=== PATIENT | female | born 1965 | race Caucasian/White ===

== ENCOUNTER 2024-05-04 08:29 | Outpatient (OUT) | payer MEDICAID, SELFPAY ==
[2024-05-04 08:48] LABS: Hemoglobin 13.9 g/dL (12.0-16.0)
--- NOTE | 2024-05-04 09:26 | RT_ITS ---
[facility] Test Date: 2024-05-04 Pat Name: LESLY HESS Department: Room: - Gender: Female Language Tutor: Aston Rodriguez RRT : 1965 Requested By: JAMAR PADRON M.D. Order Number: [id number] Reading MD: Jose De Jesus Lincoln Interpretive Statements Pulmonary function testing was completed according to ATS criteria. Findings were considered accurate and reproducible. Both pre- and post-bronchodilator values utilized for spirometry. No plethysmography was ordered. Spirometry (based on pre-bronchodilator values): -FEV1/FVC: Normal @ 74% -FEV1: Severely reduced @ 70% -FVC: Moderately reduced @ 73% -[id number]%: Reduced @ 53% -There is a partial bronchodilator response in FVC which meets >200mL increase but <12% change. Diffusion capacity: -DLCO: Moderately-severe reduction @ 55% when corrected for Hb 13.9g/dL Flow-volume loop: -'Scooping/coving' of the expiratory limb Impressions: -Non-diagnostic spirometry but appears to trend towards moderate obstruction. Partial bronchodilator response. Moderately-severe diffusion impairment. Overall study may suggest underlying COPD, but there may be an additional restrictive component affecting spirometry - if clinically correlated, plethysmography would be helpful. Electronically Signed On 05-04-2024 16:01:22 EDT by Jose De Jesus Lincoln
[2024-05-04] MEDS: ALBUTEROL SULFATE 2.5 MG/3 ML VIAL NEB IH (09:28)
== END 2024-05-04 08:30 | disposition home or self-care (01) ==
LOC: CARD 08:32
PROVIDERS: PCP Family Medicine; Visit Provider Internal Medicine Interventional Cardiology
DX: R06.02 Shortness of breath (principal); I34.0 Nonrheumatic mitral (valve) insufficiency
CPT/HCPCS: 36415; 85018; 94060; 94729

== ENCOUNTER 2024-11-15 15:03 | Outpatient (OUT) | payer MEDICAID, SELFPAY ==
[2024-11-15 15:58] LABS: Anion Gap 12.1; BUN Creatinine Ratio 20.6; Calcium 9.1 mg/dL (8.5-10.1); Carbon Dioxide 30.8 mmol/L (21.0-32.0); Chloride 103 mmol/L (98-107); Estimated GFR (African America >60 (>=60 mL/min/1.73m^2); Estimated GFR (Non-African Ame 55 (>=60 mL/min/1.73m^2); Glucose 139 mg/dL (74-106); Potassium 3.9 mmol/L (3.5-5.1); Sodium 142 mmol/L (136-145); TSH W/ REFLEX FT4 0.684 uIU/mL (0.358-3.740)
== END 2024-11-15 15:04 | disposition home or self-care (01) ==
LOC: LAB 15:04
PROVIDERS: PCP Family Medicine; Visit Provider Internal Medicine Interventional Cardiology
DX: I49.3 Ventricular premature depolarization (principal); R00.2 Palpitations; I50.22 Chronic systolic (congestive) heart failure; E87.6 Hypokalemia
CPT/HCPCS: 36415; 80048; 84443

== ENCOUNTER 2025-05-03 13:36 | Outpatient (OUT) | payer MEDICAID, SELFPAY ==
--- NOTE | 2025-05-03 13:45 | CA_ITS ---
Patient Name: LESLY HESS MR#: [id number] : 1965 Exam Date: 05/03/2025 Ordering Doctor: DR JAMAR OLGUIN M.D. ECHOCARDIOGRAM REPORT PROCEDURE: CA ECHO DOPPLER COMPLETE INDICATIONS: Chronic systolic heart failure, mitral valve ring, LA, cardiac stent COMPARISON: None. DESCRIPTION: COMPLETE ECHOCARDIOGRAM Real-time transthoracic echocardiography with 2D, M-mode, spectral and color flow Doppler performed. QUALITY: Technical quality was good. LEFT VENTRICLE: Normal chamber size. Mild concentric left ventricular hypertrophy. The septum is abnormal and motion. There is akinesis of the basal and mid inferolateral segments. Systolic function is at the lower limits of normal. LV EF: Lower limits of normal left ventricular ejection fraction, (50%). DIASTOLIC: ATRIAL SEPTUM: Visually appears intact. LEFT ATRIUM: Normal chamber size. RIGHT ATRIUM: Normal chamber size. RIGHT VENTRICLE: Normal chamber size. TRICUSPID VALVE: Normal mobility and thickness. No stenosis with trivial regurgitation. No evidence of pulmonary hypertension. RVSP 31 mmHg MITRAL VALVE: Normal mobility and thickness. Mild mitral regurgitation. Mitral valve ring appears well seated in the mitral position. Mean diastolic gradient is 2.6 mmHg at a heart rate of 65 bpm. AORTIC VALVE: Normal trileaflet appearance. No visible sclerosis. Normal leaflet mobility. No evidence of aortic valve stenosis. No aortic regurgitation. AORTIC ROOT: Normal diameter and appearance, measuring 3.3 cm. PULMONIC VALVE: Normal thickness and mobility. No stenosis. No regurgitation. PERICARDIUM: No evidence of pericardial effusion. IVC: Collapses with inspiration. IVC is normal in size. PLEURA: CONCLUSION: 1. Mild concentric left ventricular hypertrophy with low normal systolic function. Segmental wall motion abnormalities are seen in the basal and mid inferolateral segments. Estimated LVEF is 50%. 2. Normal right ventricular size and systolic function. 3. Mitral valve status post ring repair with normal Doppler flows and mild regurgitation. 4. Normal right-sided pressures. Adult Echocardiography Procedure Report Left Ventricle LVEDD (3.7 - 5.6 cm): 4.25 cm LVESD (2.2 - 4.0 cm): 3.52 cm LVIVS thickness (0.6 - 1.2 cm): 1.22 cm LVPW thickness (0.5 - 1.0 cm): 1.28 cm LVOT Max Gradient: 3.16 mm[Hg] LVOT Area (cm2): 0.89 m/s Peak Velocity (LVOT): 0.89 m/s Mean Velocity (LVOT): 0.57 m/s LVOT Diameter 2.31 cm Left Atrium LA Volume Index (2D A2C): 34.88 ml/m2 Left Atrium Systolic Dimension: 4.70 cm Mitral Valve MV E to A Ratio: 1.34 Mitral Valve A-Wave Peak Velocity: 0.89 m/s Mitral Valve E-Wave Peak Velocity: 1.20 m/s Right Ventricle Aorta AO Root Diam: 3.32 cm Aortic Valve AoV Area (Peak Omar): 3.39 cm2, 3.39 cm2 AoV Area (VTI): 3.22 cm2, 3.22 cm2 Peak Velocity(Antegrade Flow): 1.09 m/s Peak Gradient(Antegrade Flow): 4.79 mm[Hg] Mean Velocity(Antegrade Flow): 0.70 m/s Mean Gradient(Antegrade Flow): 2.34 mm[Hg] Velocity Time Integral: 26.86 cm Tricuspid Valve Peak Velocity (Regurgitant Flow): 2.63 m/s Pulmonic Valve Peak Gradient: 1.82 mm[Hg], 2.54 mm[Hg] Right Atrium Right Atrium Systolic Pressure: 33.25 ml, 33.25 ml Dictated by: Jamar Olguin M.D. on 05/03/2025 at 17:50 Approved by: Jamar Olguin M.D. on 05/03/2025 at 17:59
== END 2025-05-03 13:37 | disposition home or self-care (01) ==
LOC: CARD 13:36
PROVIDERS: PCP Family Medicine; Visit Provider Internal Medicine Interventional Cardiology
DX: I34.0 Nonrheumatic mitral (valve) insufficiency (principal); I50.22 Chronic systolic (congestive) heart failure
CPT/HCPCS: 93306